=== PATIENT | female | born 1995 | race American Indian/Alaskan Native ===

== ENCOUNTER 2018-02-24 23:31 | Emergency (ER) | payer SELFPAY ==
[2018-02-25] MEDS ORDERED: BOOSTRIX IM ONE (00:09)
--- NOTE | 2018-02-25 00:23 | Emergency Department Report ---
HPI - General Chief Complaint: Extremity Injury, Upper Time Seen by Provider: 02/25/18 00:07 - HPI HPI: 22-year-old -[place] female presents to the emergency department with a complaint of an almost complete amputation of the distal right ring finger. The patient says that she is side was intoxicated and was trying to hold a door open for someone else when her hand slipped in between the door and the door way and got crushed as the door closed. She is unsure about her tetanus vaccination status. She has some pain to the area where she has the laceration and questionable fracture. The distal portion/tip of the finger is hanging and angulated. She otherwise denies any past medical history. She is right-hand dominant. ED Past Medical Hx - Past Medical History Previous Medical History?: No - Surgical History Past Surgical History?: No - Social History Smoking Status: Never Smoker Substance Use Type: Alcohol - Medications Home Medications: Home Medications Medication Instructions Recorded Confirmed Last Taken Type HYDROcodone/APAP 5-325 [[place] 1 each PO Q6HR PRN #12 tablet 02/25/18 Unknown Rx 5/325] Sulfamethoxazole/Trimethoprim 1 each PO BID #14 tablet 02/25/18 Unknown Rx [Bactrim DS TAB] ED Review of Systems ROS: Stated complaint: HAND FALLING OFF Other details as noted in HPI Comment: All other systems reviewed and negative Constitutional: denies: chills, fever Eyes: denies: eye pain, eye discharge, vision change ENT: denies: ear pain, throat pain Respiratory: denies: cough, shortness of breath, wheezing Cardiovascular: denies: chest pain, palpitations Gastrointestinal: denies: abdominal pain, nausea, diarrhea Genitourinary: denies: urgency, dysuria, discharge Musculoskeletal: arthralgia. denies: back pain Skin: other (laceration distal ring finger). denies: rash Neurological: denies: headache, weakness Physical Exam - Physical Exam Vital Signs: Vital Signs 02/24/18 23:36 Temperature 98.1 F Pulse Rate 81 Respiratory 18 Rate Blood Pressure 122/80 O2 Sat by Pulse 99 Oximetry Physical Exam: GENERAL: The patient is well-developed well-nourished. HEENT: Normocephalic. Atraumatic. Patient has moist mucous membranes. EYES: Extraocular motions are intact. Pupils are equal and reactive to light bilaterally. NECK: Supple. Trachea is midline. CHEST/LUNGS: Clear to auscultation. There is no respiratory distress noted. HEART/CARDIOVASCULAR: Regular. There is no tachycardia. There is no gallop rub or murmur. ABDOMEN: Abdomen is soft, nontender. Patient has normal bowel sounds. There is no abdominal distention. SKIN: There is a laceration that is basically a partial amputation of the distal right ring finger that starts on the dorsum of the distal portion of the phalanx, just above the DIP joint and then heads obliquely and distally. The entire inferior portion of the nail bed and matrix is exposed. There is some venous oozing of blood. NEURO: The patient is awake, alert, and oriented. The patient is cooperative. The patient has no focal neurologic deficits. The patient has normal speech. MUSCULOSKELETAL: There is tenderness to palpation of the distal right ring finger where the patient has a partial but almost complete amputation. This is an open fracture. The distal tip does not have much feeling to palpation. There is still some capillary refill to the distal tip. Radial pulses +2 over 4 to the affected right upper extremity. ED Course Vital Signs 02/24/18 23:36 Temperature 98.1 F Pulse Rate 81 Respiratory 18 Rate Blood Pressure 122/80 O2 Sat by Pulse 99 Oximetry - Consultations Consultation #1: 02/25/18 05:39 I spoke with the orthopedist on-call, Dr. Cary, and sent him both a picture of the injured finger as well as the x-ray showing a traumatic amputation and fracture of the distal right ring finger. He took a look at these images and listened to the case presentation and recommended trying to loosely approximate the laceration/amputation together. Then he recommends placing the finger and a splint and following up on Monday. - Laceration /Wound Repair Right Finger Wound Location: upper extremity (distal right ring finger) Wound Length (cm): 2 Wound's Depth, Shape: irregular, nail-avulsed Wound Explored: no foreign body removed Irrigated w/ Saline (ccs): 50 Anesthesia: 1% Lidocaine Volume Anesthetic (ccs): 8 Wound Repaired With: sutures Suture Size/Type: 5:0 Number of Sutures: 4 Sterile Dressing Applied?: Yes Progress: 4 simple interrupted 5.0 sutures were placed, one on each side into to the dorsum to attempt to approximate the partial amputation as well as possible. After this, a non-adhesive dressing and a sterile dressing were placed around the finger and then the finger was placed in a finger splint. Patient tolerated the procedure well. Less than 5 mL of blood loss estimated. - Nerve Block Consent Obtained: verbal consent Time Out Performed: Yes Local Anesthetic Used: Lidocaine 1% Amount of anesthesia used: 8 Side: right Nerve Blocks: digital (right ring finger) Procedure Successful: Yes Complications: none Patient Tolerated Procedure: well ED Medical Decision Making - Lab Data Result diagrams: 02/25/18 00:23 02/25/18 00:23 - Radiology Data Radiology results: report reviewed PROCEDURE: XR FINGER(S) 2+V RT TECHNIQUE: RIGHT 4th finger radiographs, including AP, lateral, and oblique views. HISTORY: right distal ring finger amputation COMPARISON: No prior studies are available for comparison. FINDINGS: Fracture (s) and/or Dislocation(s): There is a displaced transverse fracture of the 4th distal phalanx. There is no joint dislocation.. Alignment: Normal. Joint space(s): Normal . Soft tissues: There is soft tissue swelling and laceration of the distal 4th digit.. Bone mineralization: Normal . Foreign bodies: None . IMPRESSION: There is a displaced transverse fracture of the 4th distal phalanx. There is no joint dislocation.. There is soft tissue swelling and laceration of the distal 4th digit.. Transcribed By: CO Dictated By: SHAN FARRIS MD Electronically Authenticated By: SHAN FARRIS MD Signed Date/Time: 02/25/18 0050 - Medical Decision Making The patient presents with a partial amputation laceration and fracture of the distal right ring finger that occurred after he accidentally got caught between the door and the door frame as the door was closing. I spoke with the orthopedist to set to loosely tack together the laceration/amputation, place it in a splint, and follow-up on Monday. The patient was given a tetanus booster. She was given a dose of Ancef. She was given some pain medication. I placed 4 simple interrupted nonabsorbable sutures to approximate as close as possible. The patient was then placed in a sterile gauze and a splint. Vital signs stable throughout her ED course. Labs have been unremarkable. Patient will be discharged home to follow-up with the orthopedist. She has been given antibiotics and pain medication. She will return to the ER with any worsening of her symptoms or any acute distress. - Differential Diagnosis fracture, laceration, amputation, contusion Critical Care Time: No Critical care attestation.: If time is entered above; I have spent that time in minutes in the direct care of this critically ill patient, excluding procedure time. ED Disposition Clinical Impression: Partial traumatic transphalangeal amputation of other finger, initial encounter Phalanx, distal fracture of finger Qualifiers: Encounter type: initial encounter Finger: ring finger Fracture type: open Fracture alignment: displaced Laterality: right Qualified Code(s): S62.634B - Displaced fracture of distal phalanx of right ring finger, initial encounter for open fracture Finger laceration Qualifiers: Encounter type: initial encounter Finger: ring finger Damage to nail status: with damage Foreign body presence: without foreign body Laterality: right Qualified Code(s): S61.314A - Laceration without foreign body of right ring finger with damage to nail, initial encounter Disposition: TO HOME OR SELFCARE Is pt being admited?: No Condition: Stable Instructions: Suture Care (ED), Finger Fracture (ED), Finger Laceration (ED) Additional Instructions: Please remain in the splint and dressings until follow-up with the orthopedist on Monday. Return to the emergency Department with any worsening of your symptoms or any acute distress. Take the antibiotics as prescribed. You have been prescribed a pain medication that can be sedating. Therefore this medication should not be taken prior to driving, working, being responsible children, and cannot be mixed with alcohol of any quantity. Prescriptions: HYDROcodone/APAP 5-325 [[place] 5/325] 1 each PO Q6HR PRN #12 tablet PRN Reason: Pain Sulfamethoxazole/Trimethoprim [Bactrim DS TAB] 1 each PO BID #14 tablet Referrals: PANKAJ CARY MD [Staff Physician] - [facility]AY[facility] Forms: Work/School Release Form(ED) Time of Disposition: 04:40
[2018-02-25] MEDS ORDERED: ceFAZolin 2 GM in NACL 0.9% 100 ML IV ONE (00:30)
[2018-02-25 00:38] LABS: Basophils # (Auto) 0.1 K/mm3 (0.0-0.1); Basophils % (Auto) 1.4 % (0.0-1.8); Eosinophils # (Auto) 0.3 K/mm3 (0.0-0.4); Eosinophils % (Auto) 4.5 % (0.0-4.3); Hematocrit 34.5 % (30.3-42.9); Lymphocytes # (Auto) 1.8 K/mm3 (1.2-5.4); Lymphocytes % (Auto) 23.8 % (13.4-35.0); Mean Corpuscular HGB Conc 35 % (30-34); Mean Corpuscular Volume 70 fl (79-97); Monocytes # (Auto) 0.4 K/mm3 (0.0-0.8); Platelet Count 388 K/mm3 (140-440); Red Blood Count 4.92 M/mm3 (3.65-5.03); Red Cell Distribution Width 17.5 % (13.2-15.2)
[2018-02-25 00:42] LABS: Mean Corpuscular Hemoglobin 24 pg (28-32)
[2018-02-25] MEDS ORDERED: XYLOCAINE 1% 20 mL INFILTRATI ONE (00:42)
[2018-02-25] MEDS ORDERED: MORPHINE IV ONE ×2 (00:43→02:37)
[2018-02-25 00:50] LABS: BUN/Creatinine Ratio 13; Blood Urea Nitrogen 8 mg/dL (7-17); Calcium 8.8 mg/dL (8.4-10.2); Hemolysis Index 4
--- NOTE | 2018-02-25 00:51 | XRay Report ---
FINAL REPORT PROCEDURE: XR FINGER(S) 2+V RT TECHNIQUE: RIGHT 4th finger radiographs, including AP, lateral, and oblique views. HISTORY: right distal ring finger amputation COMPARISON: No prior studies are available for comparison. FINDINGS: Fracture (s) and/or Dislocation(s): There is a displaced transverse fracture of the 4th distal phalanx. There is no joint dislocation.. Alignment: Normal. Joint space(s): Normal . Soft tissues: There is soft tissue swelling and laceration of the distal 4th digit.. Bone mineralization: Normal . Foreign bodies: None . IMPRESSION: There is a displaced transverse fracture of the 4th distal phalanx. There is no joint dislocation.. There is soft tissue swelling and laceration of the distal 4th digit..
[2018-02-25 04:58] VITALS: BP 102/61
== END 2018-02-25 04:58 | disposition home or self-care (01) ==
LOC: ED 23:31
DX: S61.314A Laceration without foreign body of right ring finger with damage to nail, initial encounter (principal); S68.624A Partial traumatic transphalangeal amputation of right ring finger, initial encounter; S62.634B Displaced fracture of distal phalanx of right ring finger, initial encounter for open fracture; Z91.018 Allergy to other foods; W23.0XXA Caught, crushed, jammed, or pinched between moving objects, initial encounter; Y93.89 Activity, other specified; Y99.8 Other external cause status; Y92.89 Other specified places as the place of occurrence of the external cause
CPT/HCPCS: 29130; 36415; 73140; 80048; 85025; 90471; 90715; 96365; 96375; 96376; 99284; J0690; J2270

== ENCOUNTER 2019-02-06 21:44 | Emergency (ER) | payer OTHER ==
[2019-02-06 21:58] VITALS: BP 133/65
[2019-02-06 22:27] LABS: Bilirubin,Urine NEG (Negative); Blood,Urine LG (Negative); Color,Urine Yellow (Yellow); Protein,Urine >500 mg/dL (Negative); RBC,Urine > 182.0 /HPF (0.0-6.0); Urobilinogen,Urine < 2.0 mg/dL (<2.0)
[2019-02-06] MEDS ORDERED: cefTRIAXone/NS 1 GM/50 ML 1 GM/50 ML BAG IV ONE (23:08)
[2019-02-06] MEDS ORDERED: SODIUM CHLORIDE 0.9% 1000 ML 1,000 ML IV ONE (23:08)
[2019-02-06] MEDS ORDERED: ONDANSETRON 4 MG/2 ML INJ IV ONE (23:08)
[2019-02-06 23:24] LABS: Basophils % (Auto) 0.3 % (0.0-1.8); Eosinophils # (Auto) 0.1 K/mm3 (0.0-0.4); Eosinophils % (Auto) 1.2 % (0.0-4.3); Hematocrit 33.5 % (30.3-42.9); Hemoglobin 11.3 gm/dl (10.1-14.3); Lymphocytes # (Auto) 1.5 K/mm3 (1.2-5.4); Lymphocytes % (Auto) 15.5 % (13.4-35.0); Mean Corpuscular HGB Conc 34 % (30-34); Monocytes # (Auto) 0.6 K/mm3 (0.0-0.8); Monocytes % (Auto) 6.4 % (0.0-7.3); Platelet Count 360 K/mm3 (140-440); Red Blood Count 5.08 M/mm3 (3.65-5.03); Red Cell Distribution Width 17.6 % (13.2-15.2)
[2019-02-06 23:32] LABS: Mean Corpuscular Volume 66 fl (79-97)
[2019-02-06 23:46] LABS: Alanine Aminotransferase 11 units/L (7-56); Albumin 4.4 g/dL (3.9-5); BUN/Creatinine Ratio 18; Blood Urea Nitrogen 14 mg/dL (7-17); Calcium 9.3 mg/dL (8.4-10.2); Hemolysis Index 0
--- NOTE | 2019-02-07 00:33 | Emergency Department Report ---
ED N/V/D HPI - General Chief complaint: Nausea/Vomiting/Diarrhea Stated complaint: VOMITING, DIARRHEA, FREQUENT URINATION Source: patient Mode of arrival: Ambulatory Limitations: No Limitations - History of Present Illness Initial comments: Patient is a A1 23-year-old -[place] female with no past medical history presents to the ED with complaint of acute onset persistent intermittent nausea and vomiting and diarrhea with suprapubic pain that radiates diffusely for the last 6 hours. Patient states that she has had 2 for episodes of nausea and vomiting and that she is unable keep anything down. Patient denies hematochezia, dizziness, chest pain, shortness of breath, fever, chills, dysuria, urinary frequency and urgency or vaginal discharge, cough or sore thr oat. MD complaint: nausea, vomiting, diarrhea, abdominal pain -: Sudden, hour(s) (6) Description of Vomiting: food contents, bilious Description of Diarrhea: water Associated Abdominal Pain: Yes (diffuse) Location: diffuse Radiation: none Severity: moderate Pain Scale: 5 Quality: cramping, aching Consistency: intermittent Improves with: none Worsens with: none Associated Symptoms: denies other symptoms, headaches, loss of appetite, malaise, nausea/vomiting. denies: myalgias, chest pain, cough, diaphoresis, fever/chills, rash, dysuria, shortness of breath, syncope, other - Related Data Previous Rx's Medication Instructions Recorded Last Taken Type HYDROcodone/APAP 5-325 [[place] 1 each PO Q6HR PRN #12 tablet 02/25/18 Unknown Rx 5/325] Sulfamethoxazole/Trimethoprim 1 each PO BID #14 tablet 02/25/18 Unknown Rx [Bactrim DS TAB] Dicyclomine [Bentyl] 20 mg PO Q6H PRN #20 tablet 02/07/19 Unknown Rx Ondansetron [Zofran Odt] 4 mg PO Q6HR PRN #20 tab.rapdis 02/07/19 Unknown Rx cephALEXin [Keflex] 500 mg PO Q8HR #30 cap 02/07/19 Unknown Rx Allergies Allergy/AdvReac Type Severity Reaction Status Date / Time banana Allergy Vomiting Verified 02/24/18 23:44 ED Review of Systems ROS: Stated complaint: VOMITING, DIARRHEA, FREQUENT URINATION Other details as noted in HPI Constitutional: denies: chills, fever Eyes: denies: eye pain, eye discharge, vision change ENT: denies: ear pain, throat pain Respiratory: denies: cough, shortness of breath, wheezing Cardiovascular: denies: chest pain, palpitations Endocrine: no symptoms reported Gastrointestinal: abdominal pain, nausea, vomiting, diarrhea Genitourinary: denies: urgency, dysuria, discharge Musculoskeletal: denies: back pain, joint swelling, arthralgia Skin: denies: rash, lesions Neurological: denies: headache, weakness, paresthesias Psychiatric: denies: anxiety, depression Hematological/Lymphatic: denies: easy bleeding, easy bruising ED Past Medical Hx - Past Medical History Previous Medical History?: No - Surgical History Past Surgical History?: No - Social History Smoking Status: Never Smoker Substance Use Type: Alcohol - Medications Home Medications: Home Medications Medication Instructions Recorded Confirmed Last Taken Type HYDROcodone/APAP 5-325 [[place] 1 each PO Q6HR PRN #12 tablet 02/25/18 Unknown Rx 5/325] Sulfamethoxazole/Trimethoprim 1 each PO BID #14 tablet 02/25/18 Unknown Rx [Bactrim DS TAB] Dicyclomine [Bentyl] 20 mg PO Q6H PRN #20 tablet 02/07/19 Unknown Rx Ondansetron [Zofran Odt] 4 mg PO Q6HR PRN #20 tab.rapdis 02/07/19 Unknown Rx cephALEXin [Keflex] 500 mg PO Q8HR #30 cap 02/07/19 Unknown Rx ED Physical Exam - General Limitations: No Limitations General appearance: alert, in no apparent distress - Head Head exam: Present: atraumatic, normocephalic, normal inspection - Eye Eye exam: Present: normal appearance, PERRL, EOMI Pupils: Present: normal accommodation - ENT ENT exam: Present: normal exam, normal orophraynx, mucous membranes moist, TM's normal bilaterally, normal external ear exam - Neck Neck exam: Present: normal inspection, full ROM - Respiratory Respiratory exam: Present: normal lung sounds bilaterally. Absent: respiratory distress, wheezes, rhonchi, chest wall tenderness, accessory muscle use - Cardiovascular Cardiovascular Exam: Present: regular rate, normal rhythm, normal heart sounds. Absent: systolic murmur, diastolic murmur, rubs, gallop - GI/Abdominal GI/Abdominal exam: Present: soft, normal bowel sounds. Absent: distended, tenderness, guarding, rebound, hyperactive bowel sounds, bruit - Extremities Exam Extremities exam: Present: normal inspection, full ROM, normal capillary refill - Back Exam Back exam: Present: normal inspection, full ROM. Absent: muscle spasm, paraspinal tenderness, vertebral tenderness - Neurological Exam Neurological exam: Present: alert, oriented X3, CN II-XII intact, normal gait, reflexes normal - Psychiatric Psychiatric exam: Present: normal affect, normal mood - Skin Skin exam: Present: warm, dry, intact, normal color. Absent: rash ED Course Vital Signs 02/06/19 21:56 Temperature 97.9 F Pulse Rate 94 H Respiratory 18 Rate Blood Pressure 133/65 O2 Sat by Pulse 98 Oximetry - Reevaluation(s) Reevaluation #1: 02/07/19 00:33 This is a 23-year-old female who presented to the ED with complaint of nausea, vomiting, diarrhea and suprapubic pain that radiates diffusely for the last 6 hours. In the ED, patient is alert and oriented 3 and is not in distress resting comfortably and playing with her child. Lab test results were reviewed and are nonactionable excessively urinalysis does show significant urinary tract infection. Patient was treated for pain, also treated for nausea and vomiting and given Rocephin 1 g IV 1. Patient was discharged home on medications and advised to maintain a clear liquid diet for 12-24 hours and to follow-up with her primary care physician in 5-7 days for reevaluation or return to the ED immediately if symptoms get worse. ED Medical Decision Making - Lab Data Result diagrams: 02/06/19 23:14 02/06/19 23:14 - Medical Decision Making This is a 23-year-old female who presented to the ED with complaint of nausea, vomiting, diarrhea and suprapubic pain that radiates diffusely for the last 6 hours. In the ED, patient is alert and oriented 3 and is not in distress resting comfortably and playing with her child. Lab test results were reviewed and are nonactionable excessively urinalysis does show significant urinary tract infection. Patient was treated for pain, also treated for nausea and vomiting and given Rocephin 1 g IV 1. Patient was discharged home on medications and advised to maintain a clear liquid diet for 12-24 hours and to follow-up with her primary care physician in 5-7 days for reevaluation or return to the ED immediately if symptoms get worse. - Differential Diagnosis Gastroenteritis; Acute UTI; Nausea, vomiting, diarrhea, abdominal pain Critical care attestation.: If time is entered above; I have spent that time in minutes in the direct care of this critically ill patient, excluding procedure time. ED Disposition Clinical Impression: Acute urinary tract infection, Nausea, vomiting and diarrhea Disposition: TO HOME OR SELFCARE Is pt being admited?: No Does the pt Need Aspirin: No Condition: Stable Instructions: Acute Nausea and Vomiting (ED), Abdominal Pain (ED), Urinary Tract Infection in Women (ED) Additional Instructions: Maintain a clear liquid diet for 12-24 hours and take medications with food, drink plenty of fluids and follow-up with your primary care physician in 5-7 days for reevaluation. Return to the ED immediately if symptoms get worse. Prescriptions: Dicyclomine [Bentyl] 20 mg PO Q6H PRN #20 tablet PRN Reason: Pain , Severe (7-10) cephALEXin [Keflex] 500 mg PO Q8HR #30 cap Ondansetron [Zofran Odt] 4 mg PO Q6HR PRN #20 tab.rapdis PRN Reason: Nausea Referrals: PRIMARY CARE,MD [Primary Care Provider] - 3-5 Days Forms: Work/School Release Form(ED) Time of Disposition: 00:30 Print Language: COMORAN
== END 2019-02-07 01:01 | disposition home or self-care (01) ==
LOC: ED 21:44
DX: N39.0 Urinary tract infection, site not specified (principal); Z91.018 Allergy to other foods
CPT/HCPCS: 36415; 80053; 81001; 83690; 84703; 85025; 96365; 96375; 99283; J0696; J2405; J7030

== ENCOUNTER 2019-09-12 20:47 | Emergency (ER) | payer OTHER ==
[2019-09-12 20:58] VITALS: BP 137/96
[2019-09-12] MEDS ORDERED: hydrOXYzine PAMOATE 25 MG CAP PO ONE (22:14)
[2019-09-12 22:29] LABS: Bacteria,Urine 1+ /HPF (Negative); Bilirubin,Urine NEG (Negative); Blood,Urine SM (Negative); Color,Urine Yellow (Yellow); Protein,Urine <15 mg/dL mg/dL (Negative); Urobilinogen,Urine < 2.0 mg/dL (<2.0)
[2019-09-12 22:40] LABS: Basophils % (Auto) 0.4 % (0.0-1.8); Eosinophils # (Auto) 0.1 K/mm3 (0.0-0.4); Eosinophils % (Auto) 1.1 % (0.0-4.3); Hematocrit 35.9 % (30.3-42.9); Hemoglobin 12.1 gm/dl (10.1-14.3); Lymphocytes # (Auto) 1.7 K/mm3 (1.2-5.4); Lymphocytes % (Auto) 21.9 % (13.4-35.0); Mean Corpuscular HGB Conc 34 % (30-34); Monocytes # (Auto) 0.5 K/mm3 (0.0-0.8); Monocytes % (Auto) 5.8 % (0.0-7.3); Platelet Count 114 K/mm3 (140-440); Red Blood Count 5.27 M/mm3 (3.65-5.03); Red Cell Distribution Width 19.3 % (13.2-15.2)
[2019-09-12 22:46] LABS: Mean Corpuscular Volume 68 fl (79-97)
[2019-09-12 23:09] LABS: Alanine Aminotransferase 9 units/L (7-56); Albumin 4.2 g/dL (3.9-5); BUN/Creatinine Ratio 10; Blood Urea Nitrogen 6 mg/dL (7-17); Calcium 9.9 mg/dL (8.4-10.2); Hemolysis Index 13
--- NOTE | 2019-09-12 23:45 | Emergency Department Report ---
ED General Adult HPI - General Chief complaint: Anxiety Stated complaint: SEPSIS Source: patient Mode of arrival: Ambulatory Limitations: No Limitations - History of Present Illness Initial comments: Patient is a A0 22-year-old -[place] female with a history of anxiet y presented to the ED with complaint of acute onset persistent intermittent chest tightness, shortness of breath, lack of appetite, generalized fatigue and weakness for the last 2 weeks. Patient also complains of throat discomfort because of dry throat and noticed that there was some white exudates in her tonsils. Patient states that she was diagnosed with hyperthyroidism few days ago and is currently on propranolol. Patient states that she has been feeling more generalized weakness and fatigue and felt that her iron may have been low. Patient denies dizziness, syncope, diaphoresis, headache, nausea and vomiting, change in vision, seizures, dysuria, urinary frequency and urgency, fever and chills or cough. MD Complaint: anxious; white exudates on throat, anorexia; hyperthyroidism diagnosis -: Gradual, week(s) (2) Location: head, chest, back Radiation: non-radiation Severity scale (0 -10): 4 Quality: dull Consistency: intermittent Improves with: none Worsens with: none Associated Symptoms: denies other symptoms, headaches, loss of appetite, malaise. denies: confusion, chest pain, cough, diaphoresis, fever/chills, nausea/vomiting, rash, seizure, shortness of breath, syncope, weakness Treatments Prior to Arrival: none - Related Data Previous Rx's Medication Instructions Recorded Last Taken Type HYDROcodone/APAP 5-325 [[place] 1 each PO Q6HR PRN #12 tablet 02/25/18 Unknown Rx 5/325] Sulfamethoxazole/Trimethoprim 1 each PO BID #14 tablet 02/25/18 Unknown Rx [Bactrim DS TAB] Dicyclomine [Bentyl] 20 mg PO Q6H PRN #20 tablet 02/07/19 Unknown Rx Ondansetron [Zofran Odt] 4 mg PO Q6HR PRN #20 tab.rapdis 02/07/19 Unknown Rx cephALEXin [Keflex] 500 mg PO Q8HR #30 cap 02/07/19 Unknown Rx Fluconazole [Diflucan TAB] 150 mg PO ONCE #1 tablet 09/12/19 Unknown Rx hydrOXYzine PAMOATE [Vistaril] 25 mg PO Q6HR PRN #90 capsule 09/12/19 Unknown Rx Allergies Allergy/AdvReac Type Severity Reaction Status Date / Time banana Allergy Vomiting Verified 02/24/18 23:44 ED Review of Systems ROS: Stated complaint: SEPSIS Other details as noted in HPI Constitutional: denies: chills, fever Eyes: denies: eye pain, eye discharge, vision change ENT: throat pain. denies: ear pain Respiratory: shortness of breath (occasional). denies: cough, wheezing Cardiovascular: chest pain (occasional). denies: palpitations Endocrine: no symptoms reported Gastrointestinal: denies: abdominal pain, nausea, vomiting, diarrhea, hematochezia Genitourinary: denies: urgency, dysuria, discharge Musculoskeletal: denies: back pain, joint swelling, arthralgia Skin: denies: rash, lesions Neurological: denies: headache, weakness, paresthesias Psychiatric: anxiety. denies: depression, auditory hallucinations, visual hallucinations, homicidal thoughts, suicidal thoughts Hematological/Lymphatic: denies: easy bleeding, easy bruising ED Past Medical Hx - Past Medical History Hx Sickle Cell Disease: No (Sickle Cell trait) Hx Asthma: Yes Additional medical history: THYROID DISEASE - Surgical History Past Surgical History?: No - Social History Smoking Status: Never Smoker Substance Use Type: Alcohol - Medications Home Medications: Home Medications Medication Instructions Recorded Confirmed Last Taken Type HYDROcodone/APAP 5-325 [[place] 1 each PO Q6HR PRN #12 tablet 02/25/18 Unknown Rx 5/325] Sulfamethoxazole/Trimethoprim 1 each PO BID #14 tablet 02/25/18 Unknown Rx [Bactrim DS TAB] Dicyclomine [Bentyl] 20 mg PO Q6H PRN #20 tablet 02/07/19 Unknown Rx Ondansetron [Zofran Odt] 4 mg PO Q6HR PRN #20 tab.rapdis 02/07/19 Unknown Rx cephALEXin [Keflex] 500 mg PO Q8HR #30 cap 02/07/19 Unknown Rx Fluconazole [Diflucan TAB] 150 mg PO ONCE #1 tablet 09/12/19 Unknown Rx hydrOXYzine PAMOATE [Vistaril] 25 mg PO Q6HR PRN #90 capsule 09/12/19 Unknown Rx ED Physical Exam - General Limitations: No Limitations General appearance: alert, in no apparent distress - Head Head exam: Present: atraumatic, normocephalic, normal inspection - Eye Eye exam: Present: normal appearance, PERRL, EOMI Pupils: Present: normal accommodation - ENT ENT exam: Present: normal exam, normal orophraynx, mucous membranes moist, TM's normal bilaterally, normal external ear exam - Neck Neck exam: Present: normal inspection, full ROM - Respiratory Respiratory exam: Present: normal lung sounds bilaterally. Absent: respiratory distress, wheezes, rales, rhonchi, chest wall tenderness - Cardiovascular Cardiovascular Exam: Present: regular rate, normal rhythm, normal heart sounds. Absent: systolic murmur, diastolic murmur, rubs, gallop - GI/Abdominal GI/Abdominal exam: Present: soft, normal bowel sounds. Absent: tenderness, guarding, rebound, hyperactive bowel sounds, hypoactive bowel sounds, organomegaly - Extremities Exam Extremities exam: Present: normal inspection, full ROM, normal capillary refill - Back Exam Back exam: Present: normal inspection, full ROM. Absent: tenderness, CVA tenderness (R), muscle spasm, paraspinal tenderness - Neurological Exam Neurological exam: Present: alert, oriented X3, CN II-XII intact, normal gait, reflexes normal - Psychiatric Psychiatric exam: Present: normal affect, normal mood - Skin Skin exam: Present: warm, dry, intact, normal color. Absent: rash ED Course Vital Signs 09/12/19 20:57 Temperature 98.7 F Pulse Rate 85 Respiratory 16 Rate Blood Pressure 137/96 O2 Sat by Pulse 100 Oximetry ED Medical Decision Making - Lab Data Result diagrams: 09/12/19 22:17 09/12/19 22:17 - Medical Decision Making This is a A0 22-year-old -[place] female with a history of anxiety presented to the ED with complaint of acute onset persistent intermittent chest tightness, shortness of breath, lack of appetite, generalized fatigue and weakness for the last 2 weeks. Patient also complains of throat discomfort because of dry throat and noticed that there was some white exudates in her tonsils. Patient states that she was diagnosed with hyperthyroidism few days ago and is currently on propranolol. Patient states that she has been feeling more generalized weakness and fatigue and felt that her iron may have been low. In the ED, patient is alert and oriented x3 and is not in distress but appears anxious as she quotes various symptoms that she claimed was confirmed when she looked them over in the "[employer]" search engine. In the ED, patient was treated for anxiety and lab test results were reviewed and are all nonactionable except for few yeast in the urinalysis. Specifically the TSH and the T4 levels are all nonactionable. Patient symptoms are likely due to anxiety symptoms based on the history, physical exam findings and lab test results. Patient was treated initially in this ED for anxiety and on reevaluation, patient felt better vital signs are stable and was discharged home on anxiety medication Vistaril and advised to follow-up with her primary care physician in 7 to 10 days for reevaluation or return to the ED immediately if symptoms get worse. - Differential Diagnosis anxiety; hyperthyroidism; panic attack Critical care attestation.: If time is entered above; I have spent that time in minutes in the direct care of this critically ill patient, excluding procedure time. ED Disposition Clinical Impression: Anxiety as acute reaction to exceptional stress, Angelica vaginitis Disposition: TO HOME OR SELFCARE Is pt being admited?: No Does the pt Need Aspirin: No Condition: Stable Instructions: Vaginitis (ED), Anxiety (ED) Additional Instructions: Your lab test results including test of thyroid function are all normal. Therefore your symptoms are likely due to anxiety. Therefore take medication for anxiety as needed. Follow-up with your primary care physician in 7 to 10 days for further evaluation. Return to the ED immediately if symptoms get worse. Prescriptions: Fluconazole [Diflucan TAB] 150 mg PO ONCE #1 tablet hydrOXYzine PAMOATE [Vistaril] 25 mg PO Q6HR PRN #90 capsule PRN Reason: Anxiety Referrals: [facility] [Provider Group] - 3-5 Days Time of Disposition: 23:42 Print Language: CITIZEN OF [place]
== END 2019-09-13 00:24 | disposition home or self-care (01) ==
LOC: ED 20:47
DX: B37.3 Candidiasis of vulva and vagina (principal); F41.9 Anxiety disorder, unspecified; J45.909 Unspecified asthma, uncomplicated; D57.3 Sickle-cell trait; Z79.899 Other long term (current) drug therapy; Z91.018 Allergy to other foods
CPT/HCPCS: 36415; 80053; 81001; 84436; 84443; 84481; 84703; 85025; Q0177

== ENCOUNTER 2019-10-14 13:31 | Emergency (ER) | payer OTHER ==
[2019-10-14 13:42] VITALS: BP 129/81
[2019-10-14 15:15] LABS: Basophils # (Auto) 0.1 K/mm3 (0.0-0.1); Basophils % (Auto) 0.9 % (0.0-1.8); Eosinophils # (Auto) 0.3 K/mm3 (0.0-0.4); Eosinophils % (Auto) 3.4 % (0.0-4.3); Hematocrit 36.3 % (30.3-42.9); Hemoglobin 12.4 gm/dl (10.1-14.3); Lymphocytes % (Auto) 24.7 % (13.4-35.0); Mean Corpuscular HGB Conc 34 % (30-34); Mean Corpuscular Volume 69 fl (79-97); Monocytes # (Auto) 0.6 K/mm3 (0.0-0.8); Monocytes % (Auto) 7.1 % (0.0-7.3); Platelet Count 372 K/mm3 (140-440); Red Blood Count 5.26 M/mm3 (3.65-5.03); Red Cell Distribution Width 18.4 % (13.2-15.2)
[2019-10-14 15:22] LABS: Bacteria,Urine 1+ /HPF (Negative); Bilirubin,Urine NEG (Negative); Blood,Urine LG (Negative); Color,Urine Yellow (Yellow); Mucus,Urine FEW /HPF; Protein,Urine <15 mg/dL mg/dL (Negative); Urobilinogen,Urine < 2.0 mg/dL (<2.0)
[2019-10-14 15:25] LABS: INR 0.97 (0.87-1.13)
== END 2019-10-14 16:28 | disposition home or self-care (01) ==
LOC: ED 13:31
DX: N39.0 Urinary tract infection, site not specified (principal); N93.8 Other specified abnormal uterine and vaginal bleeding; J45.909 Unspecified asthma, uncomplicated; E05.90 Thyrotoxicosis, unspecified without thyrotoxic crisis or storm; Z79.899 Other long term (current) drug therapy; Z91.018 Allergy to other foods
CPT/HCPCS: 36415; 81001; 84443; 84702; 85025; 85610; 86900; 86901

== ENCOUNTER 2020-03-15 23:44 | Emergency (ER) | payer OTHER ==
[2020-03-16 01:36] LABS: Hematocrit 34.2 % (30.3-42.9); Hemoglobin 11.9 gm/dl (10.1-14.3); Mean Corpuscular HGB Conc 35 % (30-34); Platelet Count 413 K/mm3 (140-440); Red Blood Count 5.15 M/mm3 (3.65-5.03); Red Cell Distribution Width 18.9 % (13.2-15.2)
[2020-03-16 01:37] LABS: Mean Corpuscular Volume 67 fl (79-97)
[2020-03-16 01:55] LABS: BUN/Creatinine Ratio 8; Blood Urea Nitrogen 8 mg/dL (7-17); Calcium 9.8 mg/dL (8.4-10.2); Hemolysis Index 0
--- NOTE | 2020-03-16 02:27 | Emergency Department Report ---
ED General Adult HPI - General Chief complaint: Pain General Stated complaint: BODY SWELLING/HEART RACING Time Seen by Provider: 03/16/20 02:18 Source: patient Mode of arrival: Ambulatory Limitations: No Limitations - History of Present Illness Initial comments: Chief complaint: "I have been swelling everywhere. I hope I do not have lupus" HPI: This is a 24-year-old female with history of asthma, sickle cell trait and thyroid disease who presents with 2 months of global swelling involving her face arms abdomen and lower extremities. She has had poor appetite. She also noticed a "malar rash" on her face. She denies joint pain. She denies fever. She denies change in urinary patterns. She denies change in diet although decreased appetite. 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 She is currently not . -: Gradual, month(s) (2 months) Location: face, abdomen, left, right, upper extremity, lower extremity Quality: dull Consistency: constant Improves with: none Worsens with: none Associated Symptoms: loss of appetite, other (Rash) Treatments Prior to Arrival: none - Related Data Previous Rx's Medication Instructions Recorded Last Taken Type HYDROcodone/APAP 5-325 [[place] 1 each PO Q6HR PRN #12 tablet 02/25/18 Unknown Rx 5/325] Sulfamethoxazole/Trimethoprim 1 each PO BID #14 tablet 02/25/18 Unknown Rx [Bactrim DS TAB] Dicyclomine [Bentyl] 20 mg PO Q6H PRN #20 tablet 02/07/19 Unknown Rx Ondansetron [Zofran Odt] 4 mg PO Q6HR PRN #20 tab.rapdis 02/07/19 Unknown Rx cephALEXin [Keflex] 500 mg PO Q8HR #30 cap 02/07/19 Unknown Rx Fluconazole (Nf) [Diflucan TAB] 150 mg PO ONCE #1 tablet 09/12/19 Unknown Rx hydrOXYzine PAMOATE [Vistaril] 25 mg PO Q6HR PRN #90 capsule 09/12/19 Unknown Rx cephALEXin [Keflex] 500 mg PO BID 7 Days #14 cap 10/14/19 Unknown Rx Allergies Allergy/AdvReac Type Severity Reaction Status Date / Time banana Allergy Vomiting Verified 02/24/18 23:44 ED Review of Systems ROS: Stated complaint: BODY SWELLING/HEART RACING Other details as noted in HPI Comment: All other systems reviewed and negative Constitutional: denies: fever, malaise Cardiovascular: denies: chest pain Gastrointestinal: denies: nausea, vomiting ED Past Medical Hx - Past Medical History Previous Medical History?: Yes Hx Sickle Cell Disease: Yes (Sickle Cell trait) Hx Asthma: Yes Additional medical history: THYROID DISEASE - Surgical History Past Surgical History?: No - Social History Smoking Status: Never Smoker Substance Use Type: None - Medications Home Medications: Home Medications Medication Instructions Recorded Confirmed Last Taken Type HYDROcodone/APAP 5-325 [[place] 1 each PO Q6HR PRN #12 tablet 02/25/18 Unknown Rx 5/325] Sulfamethoxazole/Trimethoprim 1 each PO BID #14 tablet 02/25/18 Unknown Rx [Bactrim DS TAB] Dicyclomine [Bentyl] 20 mg PO Q6H PRN #20 tablet 02/07/19 Unknown Rx Ondansetron [Zofran Odt] 4 mg PO Q6HR PRN #20 tab.rapdis 02/07/19 Unknown Rx cephALEXin [Keflex] 500 mg PO Q8HR #30 cap 02/07/19 Unknown Rx Fluconazole (Nf) [Diflucan TAB] 150 mg PO ONCE #1 tablet 09/12/19 Unknown Rx hydrOXYzine PAMOATE [Vistaril] 25 mg PO Q6HR PRN #90 capsule 09/12/19 Unknown Rx cephALEXin [Keflex] 500 mg PO BID 7 Days #14 cap 10/14/19 Unknown Rx ED Physical Exam - General Limitations: No Limitations General appearance: alert, in no apparent distress - Head Head exam: Present: atraumatic, normocephalic - Eye Eye exam: Present: normal appearance - ENT ENT exam: Present: mucous membranes moist - Neck Neck exam: Present: normal inspection, full ROM - Respiratory Respiratory exam: Present: normal lung sounds bilaterally. Absent: respiratory distress, wheezes, rales, rhonchi - Cardiovascular Cardiovascular Exam: Present: regular rate, normal rhythm, normal heart sounds. Absent: systolic murmur, diastolic murmur, rubs, gallop - GI/Abdominal GI/Abdominal exam: Present: soft, normal bowel sounds. Absent: distended, tenderness, guarding, rebound - Extremities Exam Extremities exam: Present: normal inspection - Neurological Exam Neurological exam: Present: alert, oriented X3 - Psychiatric Psychiatric exam: Present: normal affect, normal mood - Skin Skin exam: Present: warm, dry, intact, normal color. Absent: rash ED Course Vital Signs 03/16/20 00:30 Temperature 97.9 F Pulse Rate 87 Respiratory 18 Rate Blood Pressure 139/96 O2 Sat by Pulse 99 Oximetry ED Medical Decision Making - Lab Data Result diagrams: 03/16/20 00:56 03/16/20 00:56 Laboratory Results - last 24 hr 03/16/20 03/16/20 00:56 00:56 WBC 6.6 RBC 5.15 H Hgb 11.9 Hct 34.2 MCV 67 L MCH 23 L MCHC 35 H RDW 18.9 H Plt Count 413 Sodium 134 L Potassium 3.9 Chloride 98.8 Carbon Dioxide 22 Anion Gap 17 BUN 8 Creatinine 1.0 Estimated GFR > 60 BUN/Creatinine Ratio 8 Glucose 101 H Calcium 9.8 - Medical Decision Making Ms. Figueroa is a 24-year-old who presents with global body swelling. No edema evident on today's exam. I do not detect an emergent condition such as acute kidney injury or congestive heart failure. I do not suspect liver disease. Water retention is a consideration. I recommended clean nutritious diet. I recommended decrease sodium intake. She will follow with her PCP next available appointment. Critical care attestation.: If time is entered above; I have spent that time in minutes in the direct care of this critically ill patient, excluding procedure time. ED Disposition Clinical Impression: Swelling Disposition: DC-01 TO HOME OR SELFCARE Is pt being admited?: No Does the pt Need Aspirin: No Condition: Stable Instructions: Edema Referrals: PRIMARY CARE, [Primary Care Provider] - 3-5 Days
[2020-03-16 02:47] VITALS: BP 133/65
[2020-03-16 03:51] LABS: Anisocytosis 1+; Basophils % (Manual) 0 % (0.0-1.8); Hypochromasia 1+; Total Cells Counted 100
[2020-03-16 03:52] LABS: Platelet Estimate Consistent w Auto; Target Cells 1+
== END 2020-03-16 02:48 | disposition home or self-care (01) ==
LOC: ED 23:44
DX: R60.1 Generalized edema (principal); J45.909 Unspecified asthma, uncomplicated; Z79.899 Other long term (current) drug therapy; Z91.018 Allergy to other foods
CPT/HCPCS: 36415; 80048; 85007; 85025

== ENCOUNTER 2020-06-23 22:41 | Emergency (ER) | payer SELFPAY ==
--- NOTE | 2020-06-23 23:01 | Event Note ---
ED Screening Note Date of service: 06/23/20 Time: 22:59 ED Screening Note: Patient is a 24-year-old -[place] female with a history of hyperthyroidism. States previous history of propranolol use. She has been off medication for the past 6 months. Today's complaint includes tremor , hot and cold. Patient denies nausea vomiting, there is no chest pain, there is no shortness of breath, there has been no fever or chills. pt is followed by endocrinology. last visit 4 months ago This initial assessment/diagnostic orders/clinical plan/treatment(s) is/are subject to change based on patients health status, clinical progression and re- assessment by fellow clinical providers in the ED. Further treatment and workup at subsequent clinical providers discretion. Patient/guardian urged not to elope from the ED as their condition may be serious if not clinically assessed and managed. Initial orders include:
[2020-06-23 23:46] LABS: Bacteria,Urine 4+ /HPF (Negative); Bilirubin,Urine NEG (Negative); Blood,Urine NEG (Negative); Color,Urine Yellow (Yellow); Hyaline Casts,Urine 3 /LPF; Mucus,Urine FEW /HPF
[2020-06-23 23:50] LABS: HCG Qualitative,Urine Negative (Negative)
[2020-06-24 00:06] LABS: Basophils # (Auto) 0.2 K/mm3 (0.0-0.1); Basophils % (Auto) 2.1 % (0.0-1.8); Eosinophils # (Auto) 0.3 K/mm3 (0.0-0.4); Eosinophils % (Auto) 3.8 % (0.0-4.3); Hematocrit 35.4 % (30.3-42.9); Lymphocytes # (Auto) 2.7 K/mm3 (1.2-5.4); Lymphocytes % (Auto) 35.1 % (13.4-35.0); Mean Corpuscular HGB Conc 34 % (30-34); Monocytes # (Auto) 0.5 K/mm3 (0.0-0.8); Monocytes % (Auto) 6.2 % (0.0-7.3); Platelet Count 427 K/mm3 (140-440); Red Blood Count 5.13 M/mm3 (3.65-5.03); Red Cell Distribution Width 19.6 % (13.2-15.2)
[2020-06-24 00:09] LABS: Mean Corpuscular Volume 69 fl (79-97)
[2020-06-24 00:19] LABS: Alanine Aminotransferase 9 units/L (7-56); Albumin 3.9 g/dL (3.9-5); Blood Urea Nitrogen 11 mg/dL (7-17); Calcium 9.1 mg/dL (8.4-10.2); Hemolysis Index 22
--- NOTE | 2020-06-24 00:39 | Emergency Department Report ---
HPI - General Chief Complaint: Chest Pain Time Seen by Provider: 06/24/20 00:18 - HPI HPI: This is a 24-year-old -[place] female who presents to the emergency department with complaint of some anxiety, insomnia, and some previous hand tremors yesterday. Patient is concerned that she could have an overactive thyroid. The patient says that she does have a history of hyperthyroidism but "they told me it was so close to normal that I did not need treatment." However, when the patient was previously hyperthyroid she was on a beta-favio. However the patient stopped taking this medication because "they told me I was close to normal and I do not like medication if I do not need it." She denies any fever, nausea, vomiting, palpitations, shortness of breath, chest pain. Patient did say that she took her anxiety medication which initially did not work. However, the patient says "now I feel calm." She has a history of anxiety, sickle cell trait, and this previous diagnosis of hypothyroidism. No recent travel or sick contacts at home. Her primary care physician is a Dr. Oswaldo Jason. ED Past Medical Hx - Past Medical History Previous Medical History?: Yes Hx Sickle Cell Disease: Yes (Sickle Cell trait) Hx Asthma: No Additional medical history: Hyperthyroid - Surgical History Past Surgical History?: No - Social History Smoking Status: Never Smoker Substance Use Type: Alcohol - Medications Home Medications: Home Medications Medication Instructions Recorded Confirmed Last Taken Type HYDROcodone/APAP 5-325 [[place] 1 each PO Q6HR PRN #12 tablet 02/25/18 Unknown Rx 5/325] Sulfamethoxazole/Trimethoprim 1 each PO BID #14 tablet 02/25/18 Unknown Rx [Bactrim DS TAB] Dicyclomine [Bentyl] 20 mg PO Q6H PRN #20 tablet 02/07/19 Unknown Rx Ondansetron [Zofran Odt] 4 mg PO Q6HR PRN #20 tab.rapdis 02/07/19 Unknown Rx cephALEXin [Keflex] 500 mg PO Q8HR #30 cap 02/07/19 Unknown Rx Fluconazole (Nf) [Diflucan TAB] 150 mg PO ONCE #1 tablet 09/12/19 Unknown Rx hydrOXYzine PAMOATE [Vistaril] 25 mg PO Q6HR PRN #90 capsule 09/12/19 Unknown Rx cephALEXin [Keflex] 500 mg PO BID 7 Days #14 cap 10/14/19 Unknown Rx Nitrofurantoin [place]/M-Cryst 100 mg PO Q12HR #14 capsule 06/24/20 Unknown Rx [Macrobid CAP] ED Review of Systems ROS: Stated complaint: MANIC/ANXIETY ATTACK/CHEST PAIN Other details as noted in HPI Comment: All other systems reviewed and negative Constitutional: other (Insomnia). denies: chills, fever Eyes: denies: eye pain, vision change ENT: denies: ear pain, throat pain Respiratory: denies: cough, shortness of breath Cardiovascular: denies: palpitations, syncope Gastrointestinal: nausea. denies: abdominal pain Genitourinary: denies: dysuria, discharge Musculoskeletal: denies: back pain, arthralgia Skin: denies: rash, lesions Neurological: other (Tremors). denies: headache, numbness, paresthesias Psychiatric: anxiety. denies: homicidal thoughts, suicidal thoughts Physical Exam - Physical Exam Vital Signs: Vital Signs 06/23/20 06/23/20 06/24/20 22:59 23:00 00:19 Temperature 98.0 F Pulse Rate 80 81 Respiratory 16 18 Rate Blood Pressure 120/70 Blood Pressure 114/56 [Left] O2 Sat by Pulse 100 99 Oximetry Physical Exam: GENERAL: The patient is well-developed well-nourished. HENT: Normocephalic. Atraumatic. Patient has moist mucous membranes. EYES: Extraocular motions are intact. NECK: Supple. Trachea is midline. CHEST/LUNGS: Clear to auscultation. There is no respiratory distress noted. HEART/CARDIOVASCULAR: Regular. There is no tachycardia. There is no murmur. ABDOMEN: Abdomen is soft, nontender. Patient has normal bowel sounds. There is no abdominal distention. SKIN: Skin is warm and dry. NEURO: The patient is awake, alert, and oriented. The patient is cooperative. The patient has no focal neurologic deficits. Normal speech. Cranial nerves II through XII grossly intact. MUSCULOSKELETAL: There is no tenderness or deformity. There is no limitation range of motion. ED Course Vital Signs 06/23/20 06/23/20 06/24/20 22:59 23:00 00:19 Temperature 98.0 F Pulse Rate 80 81 Respiratory 16 18 Rate Blood Pressure 120/70 Blood Pressure 114/56 [Left] O2 Sat by Pulse 100 99 Oximetry ED Medical Decision Making - Lab Data Result diagrams: 06/23/20 23:15 06/23/20 23:15 Lab Results 06/23/20 06/23/20 06/23/20 Range/Units 23:02 23:15 23:15 WBC 7.8 (4.5-11.0) K/mm3 RBC 5.13 H (3.65-5.03) M/mm3 Hgb 12.0 (10.1-14.3) gm/dl Hct 35.4 (30.3-42.9) % MCV 69 L (79-97) fl MCH 24 L (28-32) pg MCHC 34 (30-34) % RDW 19.6 H (13.2-15.2) % Plt Count 427 (140-440) K/mm3 Lymph % (Auto) 35.1 H (13.4-35.0) % [place] % (Auto) 6.2 (0.0-7.3) % Eos % (Auto) 3.8 (0.0-4.3) % Baso % (Auto) 2.1 H (0.0-1.8) % Lymph # (Auto) 2.7 (1.2-5.4) K/mm3 [place] # (Auto) 0.5 (0.0-0.8) K/mm3 Eos # (Auto) 0.3 (0.0-0.4) K/mm3 Baso # (Auto) 0.2 H (0.0-0.1) K/mm3 Seg Neutrophils % 52.8 (40.0-70.0) % Seg Neutrophils # 4.1 (1.8-7.7) K/mm3 Sodium 137 (137-145) mmol/L Potassium 4.1 (3.6-5.0) mmol/L Chloride 103.7 (98-107) mmol/L Carbon Dioxide 24 (22-30) mmol/L Anion Gap 13 mmol/L BUN 11 (7-17) mg/dL Creatinine 0.7 (0.6-1.2) mg/dL Estimated GFR > 60 ml/min BUN/Creatinine Ratio 16 % Glucose 98 (65-100) mg/dL Calcium 9.1 (8.4-10.2) mg/dL Total Bilirubin 0.30 (0.1-1.2) mg/dL AST 13 (5-40) units/L ALT 9 (7-56) units/L Alkaline Phosphatase 105 (35-129) units/L Total Protein 7.1 (6.3-8.2) g/dL Albumin 3.9 (3.9-5) g/dL Albumin/Globulin Ratio 1.2 % Urine Color Yellow (Yellow) Urine Turbidity Cloudy (Clear) Urine pH 7.0 (5.0-7.0) Ur Specific [place] 1.028 (1.003-1.030) Urine Protein 30 mg/dl (Negative) mg/dL Urine Glucose (UA) Neg (Negative) mg/dL Urine Ketones Neg (Negative) mg/dL Urine Blood Neg (Negative) Urine Nitrite Neg (Negative) Urine Bilirubin Neg (Negative) Urine Urobilinogen 4.0 (<2.0) mg/dL Ur Leukocyte Esterase Lg (Negative) Urine WBC (Auto) 37.0 H (0.0-6.0) /HPF Urine RBC (Auto) 10.0 (0.0-6.0) /HPF U Epithel Cells (Auto) 42.0 H (0-13.0) /HPF Urine Bacteria (Auto) 4+ (Negative) /HPF Hyaline Casts 3 /LPF Urine Mucus Few /HPF Urine Yeast (Budding) 2+ /HPF Urine HCG, Qual Negative (Negative) - Medical Decision Making This patient presents to the emergency department with a complaint of feeling anxious, having some bilateral upper extremity tremors yesterday that have since resolved, and having insomnia without any significant sleep over the past 2 nights. At the time of my examination the patient is calm and appropriate and does not appear anxious or manic. Vital signs have been reassuring throughout her ED course including being afebrile. Patient's labs have been mostly unremarkable including CBC, metabolic panel, but urinalysis shows a mild urinary tract infection. The patient was given a dose of Macrobid. The patient does have some history of borderline hyperthyroidism and a TSH was sent. However lab has been having difficulty with the equipment to check thyroid function and it still has yet to result. The patient does not appear consistent with any significant hyperthyroidism or thyroid storm at this time. She is afebrile, calm and appropriate, she does not have any tachycardia, is not complaining of any diaphoresis, and does not have any evidence of the previously mentioned tremors. For this reason, after shared decision-making, the patient has decided to be discharged home without the TSH results. She has good outpatient follow-up with primary care. She says that she was already given a prescription for some type of sleeping aid or medication by her PCP. She will return to the emergency department with any worsening of her symptoms or with any acute distress. Critical Care Time: No Critical care attestation.: If time is entered above; I have spent that time in minutes in the direct care of this critically ill patient, excluding procedure time. ED Disposition Clinical Impression: Anxiety, History of hyperthyroidism Insomnia Qualifiers: Insomnia type: unspecified Qualified Code(s): G47.00 - Insomnia, unspecified UTI (urinary tract infection) Qualifiers: Urinary tract infection type: acute cystitis Hematuria presence: with hematuria Qualified Code(s): N30.01 - Acute cystitis with hematuria Disposition: TO HOME OR SELFCARE Is pt being admited?: No Condition: Stable Instructions: Urinary Tract Infection, Adult, Insomnia, Managing Anxiety, Adult Additional Instructions: Please follow-up with your primary care physician in the next few days. Please try to avoid any excessive caffeine. Return to the emergency department with any worsening of your symptoms, new or concerning symptoms not addressed during this current emergency department visit, or with any acute distress. Prescriptions: Nitrofurantoin [place]/M-Cryst [Macrobid CAP] 100 mg PO Q12HR #14 capsule Referrals: SHAYLA JASON JR, MD [Primary Care Provider] - 2-3 Days Forms: Work/School Release Form(ED) Time of Disposition: 02:12
[2020-06-24 00:49] LABS: BUN/Creatinine Ratio 16
[2020-06-24] MEDS ORDERED: NITROFURANTOIN MONOHYD/M-CRYST 100 MG CAP PO ONE (01:29)
[2020-06-24 03:27] VITALS: BP 126/79
== END 2020-06-24 03:27 | disposition home or self-care (01) ==
LOC: ED 22:41
DX: F41.9 Anxiety disorder, unspecified (principal); G47.00 Insomnia, unspecified; N39.0 Urinary tract infection, site not specified; Z86.39 Personal history of other endocrine, nutritional and metabolic disease; Z79.899 Other long term (current) drug therapy; Z91.018 Allergy to other foods
CPT/HCPCS: 36415; 80053; 81001; 81025; 84443; 85025; 87086